=== PATIENT | female | born 2000 | race Caucasian/White ===

== ENCOUNTER 2018-08-28 19:20 | Emergency (ER) | payer OTHER ==
[2018-08-28 19:25] VITALS: BP 130/93
--- NOTE | 2018-08-28 19:34 | EDPHY ---
H & P Time Seen by Provider: 08/28/18 19:27 HPI/ROS: CHIEF COMPLAINT: Left 4th digit laceration HISTORY OF PRESENT ILLNESS: 17-year-old [id number] female with up-to- date tetanus was opening a bag of chicken sustained accidental laceration left 4th digit proximal/radial aspect. No paresthesia distally. No extensor or flexor dysfunction. Occurred shortly prior to arrival PRIMARY CARE PROVIDER: REVIEW OF SYSTEMS: 10 systems reviewed and are negative with exception of illness mentioned in the history of present illness PHYSICAL EXAM (Prior to examination, patient consented to physical exam, hands were washed and my usual and customary physical exam procedures followed) 1) GENERAL: Well-developed, well-nourished, alert and oriented. Appears to be in no acute distress. 2) HEAD: Normocephalic 3) HEENT: sclera anicteric 4) LUNGS: Breathing comfortably. 5) SKIN: Left 4th digit proximal phalanx radial aspect 2.5 cm linear laceration. 6) MUSCULOSKELETAL: FDP FDS intact. Extensor function intact. 7) NEUROLOGIC: Two-point discrimination intact distally. Smoking Status: Never smoked Constitutional: Initial Vital Signs Temperature (C) 36.7 C 08/28/18 19:21 Heart Rate 100 08/28/18 19:21 Respiratory Rate 16 08/28/18 19:21 Blood Pressure 130/93 H 08/28/18 19:21 O2 Sat (%) 97 08/28/18 19:21 O2 Delivery Mode Room Air Allergies/Adverse Reactions: amoxicillin Allergy (Verified 08/28/18 19:24) Home Medications: Medication Instructions Recorded Birthcontrol 08/28/18 MDM/Departure - [facility] Procedures: Procedure: Laceration repair. I explained the indications, risks and benefits for both laceration repair and anesthetic administration. Verbal consent was obtained from the patient . The laceration on the left 4th digit was anesthetized using 0.5% bupivicaine without epinephrine . After anesthetic administered the patient was observed for a period of time and had no apparent adverse effects. The wound was cleaned , prepped, draped in normal sterile fashion and explored to its base. No foreign body seen, no foreign bodies palpated. There were no deep structures involved. No tendon injury was identified. The wound was repaired with 7 simple interrupted 5 O Prolene sutures. The wound repair was simple. The procedure was performed by myself. Patient has been informed that scarring will occur, although efforts have been made to minimize this. ED Course/Re-evaluation: Care of patient under supervision of secondary supervising physician Dr Fierro . - Depart Disposition: Home, Routine, Self-Care Clinical Impression: Laceration of left ring finger Qualifiers: Encounter type: initial encounter Damage to nail status: without damage Foreign body presence: without foreign body Qualified Code(s): S61.215A - Laceration without foreign body of left ring finger without damage to nail, initial encounter Condition: Good Instructions: Care For Your Stitches (ED), Laceration (ED) Additional Instructions: Return to the ER if you develop redness, swelling, discharge, warmth to the wound, red streaks going up your arm, or any other symptoms that concern you. Referrals: Return, to the ER in 10 days for suture removal [Other] - As per Instructions
== END 2018-08-28 19:50 | disposition home or self-care (01) ==
PROC: 0HQGXZZ Repair Left Hand Skin, External Approach (ICD-10-PCS; principal; 2018-08-28)
DX: S61.215A Laceration without foreign body of left ring finger without damage to nail, initial encounter (principal); W26.8XXA Contact with other sharp object(s), not elsewhere classified, initial encounter; Y93.89 Activity, other specified